=== PATIENT | female | born 1995 | race Caucasian/White ===

== ENCOUNTER 2016-02-26 11:20 | Outpatient (CLI) | payer OTHER ==
[~2016-02-26] VITALS: Ht 160 cm; Wt 54.1 kg
[~2016-02-26 11:20] MED LIST: PREN1TAB13 PO
[2016-02-26 11:39] VITALS: Ht 160 cm; Wt 54.1 kg
[2016-02-26 11:40] VITALS: BP 116/67; PULSE 63; RESP 18
[2016-02-26] MEDS ORDERED: TERBUTALINE 1 MG/ML INJ SC STA (12:16)
[2016-02-26] MEDS ORDERED: LACTATED RINGER'S 1,000 ML IV* STA (12:16)
[2016-02-26 12:57] LABS: ADD UMIC YES; URINE BILIRUBIN (Dip) NEGATIVE (NEGATIVE); URINE BLOOD (Dip) NEGATIVE (NEGATIVE); URINE COLOR LT. YELLOW (YELLOW); URINE GLUCOSE (Dip) NEGATIVE (NEGATIVE); URINE KETONES (Dip) NEGATIVE (NEGATIVE); URINE LEUKOCYTE ESTERASE (Dip) 2+ (NEGATIVE); URINE NITRITE (Dip) NEGATIVE (NEGATIVE); URINE TOTAL PROTEIN (Dip) NEGATIVE (NEGATIVE); URINE UROBILINOGEN (Dip) 0.2 E.U./dL (0.1-1.0)
[2016-02-26 13:11] LABS: BACTERIA,URINE FEW; SQUAMOUS EPITHELIAL CELL,UR FEW; URINE RBCS NONE SEEN /HPF (0)
[2016-02-26 13:19] LABS: BARBITURATES NEGATIVE (NEGATIVE); BENZODIAZEPINES NEGATIVE (NEGATIVE); CANNABINOIDS NEGATIVE (NEGATIVE); COCAINE NEGATIVE (NEGATIVE); OPIATES NEGATIVE (NEGATIVE)
--- NOTE | 2016-02-26 14:41 | RADRPT ---
PROCEDURE: OB ultrasound for biophysical profile CLINICAL INDICATION: labor. Biophysical profile. . TECHNIQUE: Multiple sonographic images of the pelvis were obtained. Transabdominal view of the gr avid uterus are available for review. The images were reviewed on a PACS workstation. COMPARISON: None FINDINGS: breathing movement = 2/2 tone = 2/2 motion = 2/2 GILBERT = 2/2 GILBERT = 14.9 cm Single intrauterine gestation is identified in cephalic position. Placenta is anterior without evide nce for abruption or previa. heart rate is 157 bpm. IMPRESSION: 1. Single live intrauterine gestation. 2. Biophysical profile = 8/8. 3. GILBERT = 14.9 cm. RPTAT: EE .Ezio Iraheta MD, MD Date Time Electronically viewed and signed by .Ezio Iraheta MD, MD on 02/26/2016 14:41 .R/
--- NOTE | 2016-02-26 14:43 | RADRPT ---
PROCEDURE: US OB. CLINICAL INDICATION: labor TECHNIQUE: Multiple sonographic images of the pelvis were obtained. Transabdominal imaging was pe rformed. Transvaginal images were obtained to assess cervical length. The images were reviewed on a PACS workstation. COMPARISON: No prior studies are available for comparison. FINDINGS: There is a single viable intrauterine gestation. Cardiac activity is present with 159 beats per min faith. There is a cephalic presentation. The cervix is closed and measures 3.1 cm in length Measurements were made in order to determine age. The results are as follows: BPD = 7.1 cm HC = 25.8 cm AC = 23.8 cm FL = 5.3 cm Gestational age is 28 weeks 1 day and ROMEO is 05/19/2016 by ultrasound criteria. EFW = 1178 g +/- 177 g (36 %). The placenta is anterior. There is no evidence for an abruption or placenta previa. IMPRESSION: 1. Single live intrauterine gestation of approximately 28 weeks 1 day by ultrasound criteria. 2. The cervix is closed and measures 3.1 cm in length. RPTAT: EE .Ezio Iraheta MD, Date Time Electronically viewed and signed by .Ezio Iraheta MD, MD on 02/26/2016 14:42 .R/
--- NOTE | 2016-02-26 17:14 | TRIAGE ---
OB Triage Datetime Report Generated by CPN: 02/26/2016 17:14 Datetime: 02/26/2016 15:21 Vaginal Exam Dilatation (cms): 0.0 Effacement (%): 50 Station: -2 Exam By: VALENTIN OROZCO Vaginal Bleeding: None Cervix, Consistency: Firm Cervix, Position: Posterior Presentation 'A': Unable to Assess Lie 'A': Unable to Assess Datetime: 02/26/2016 13:56 Vaginal Exam Dilatation (cms): 0.0 Effacement (%): 40 Station: -3 Exam By: DR SOTO Vaginal Bleeding: None Cervix, Consistency: Firm Cervix, Position: Posterior Presentation 'A': Unable to Assess Lie 'A': Unable to Assess Datetime: 02/26/2016 13:24 Labor Evaluation Frequency: 2-3 Monitor Mode: External Duration (sec)2399: 40-50 Quality: Mild Pattern: Normal: <= 5 Contractions in 10 Minutes Resting Tone Cameron: Relaxed Heart Rate FHR Baseline Rate: 150 Monitor Mode: External US FHR Baseline Changes: No Baseline Change Variability: Moderate 6-25 bpm Accelerations: 15X15 Decelerations: None Category: Category I Datetime: 02/26/2016 13:18 Bedside Blood Glucose: 79 Datetime: 02/26/2016 12:52 Labor Evaluation Frequency: 3-4 Monitor Mode: External Duration (sec)2399: 40-50 Quality: Mild Pattern: Normal: <= 5 Contractions in 10 Minutes Resting Tone Cameron: Relaxed Heart Rate FHR Baseline Rate: 150 Monitor Mode: External US FHR Baseline Changes: No Baseline Change Variability: Moderate 6-25 bpm Accelerations: 15X15 Decelerations: None Category: Category I Datetime: 02/26/2016 12:22 Labor Evaluation Frequency: 2-3 Monitor Mode: External Duration (sec)2399: 50-70 Quality: Mild Pattern: Normal: <= 5 Contractions in 10 Minutes Resting Tone Cameron: Relaxed Heart Rate FHR Baseline Rate: 150 Monitor Mode: External US FHR Baseline Changes: No Baseline Change Variability: Moderate 6-25 bpm Accelerations: 15X15 Decelerations: None Category: Category I Datetime: 02/26/2016 12:09 Stage of : OB Triage Labor Evaluation Frequency: 4-5 Monitor Mode: External Duration (sec)2399: 60-70 Quality: Mild Pattern: Normal: <= 5 Contractions in 10 Minutes Resting Tone Cameron: Relaxed Heart Rate FHR Baseline Rate: 150 Monitor Mode: External US FHR Baseline Changes: No Baseline Change Variability: Moderate 6-25 bpm Accelerations: 15X15 Decelerations: None Category: Category I Membrane Status: Intact Datetime: 02/26/2016 11:49 Stage of : OB Triage Maternal Assessment Level of Consciousness: Fully Conscious DTR's/Clonus: DTRs 2+; No Clonus Headache: Denies Blurred Vision: No Respiratory Effort: Unlabored Breath Sounds, Left: Clear and Equal Breath Sounds, Right: Clear and Equal Nausea/Vomiting: Denies RUQ Epigastric Pain: Denies Facial Edema: None Labor Evaluation Frequency: X3 Monitor Mode: External Duration (sec)2399: 50-60 Quality: Mild Pattern: Normal: <= 5 Contractions in 10 Minutes Resting Tone Cameron: Relaxed Heart Rate FHR Baseline Rate: 150 Monitor Mode: External US FHR Baseline Changes: No Baseline Change Variability: Moderate 6-25 bpm Accelerations: 15X15 Decelerations: None Category: Category I Pain Assessment Pain Scale: 5 Pain Presence: Intermittent Pain Type: Cramping Pain Location: Abdomen Pain Goal: 0 Pain Relief Measures: Comfort Measures Membrane Status: Intact Datetime: 02/26/2016 11:15 Time of Arrival: 02/26/2016 11:06 EGA: 28.1 Arrived By: Ambulatory Arrived From: Home Chief Complaint: R/O PTL Movement: Present Contractions: Denies/Absent Rupture of Membranes: Denies Vaginal Bleeding: None Vaginal Discharge: Denies Recent Sexual Intercouse: Denies Abdominal Trauma: Not Applicable Patient Complaints: Cramping Time Provider Notified: 02/26/2016 11:16 Provider Notified: JAYJAY Initial Plan: FFN, CERVICAL LENGTH, UA, CBC, URINE TOXIC SCREEN, EFW, BPP, IV HYDRATION, TERB X1. BPP 8/8 GILBERT 14.9 Datetime: 01/27/2016 21:35 Fall Risk Assessment Fall Score: 0 Fall Risk Score Definition: No Risk: No action required Datetime: 01/27/2016 21:28 EGA: 23.6 Datetime: 01/07/2016 13:03 Fall Risk Assessment Fall Score: 0 Fall Risk Score Definition: No Risk: No action required Datetime: 01/07/2016 13:02 EGA: 21.0
--- NOTE | 2016-02-26 17:46 | QN ---
Documentation Comment 20 years old with IUP at 28 weeks and 1 days, presented with complaint of uterine contractions. ROMEO: 05/19/2016. Denies any LOF, or decreased movement. Denies any dysuria, fever, chills or any other complaint. GA: A&O,NAD Abdomen: Soft, non tender, gravid Fundal height Correlate with GA. NST: contractions every 2 -3 minutes with irritability noted SSE: Small amount of pink vaginal discharge noted. TVCL: 3.5 cm Received a dose of terbutaline. Contractions stopped. UA : Negative. BPP: 09/29 GILBERT: 14.9 cm Symptoms completely resolved after terbutaline and IV hydration Assessment: IUP at 28 weeks and 1 day contractions Resolved with IV hydration and one dose of terbutaline Patient observed for couple of hours, Asymptomatic CL normal and not short DC home Strict labor precaution and kick counts discussed Advised about adequate Hydration Follow up with Ob clinic in 2-3 days recommended Advised to immediatey return to L&D if she has any recurrence of contractions. LOF, vaginal bleeding, decreased movement or for any other concerns REBECCA SOTO MD Feb 26, 2016 17:46
== END 2016-02-26 16:57 | disposition home or self-care (01) ==
LOC: OBT 11:20 → L-D 11:21 → OBT 16:57
PROVIDERS: ATTEND Obstetrics & Gynecology Obstetrics
DX: O62.9 Abnormality of forces of labor, unspecified (principal); O60.03 Preterm labor without delivery, third trimester; Z3A.28 28 weeks gestation of pregnancy
CPT/HCPCS: 36415; 76815; 76817; 76818; 80303; 81001; 82962; 96360; 96361; 96372; J3105; J7120; Z7500; 80307; 81003; G0463

== ENCOUNTER 2017-01-28 22:31 | Emergency (ER) | payer OTHER ==
[~2017-01-28] VITALS: Ht 160 cm; Wt 50.0 kg
[2017-01-28 22:35] VITALS: Ht 160 cm; Wt 50.0 kg
[2017-01-28] MEDS ORDERED: UDROBAC PO (23:18)
[2017-01-28] MEDS ORDERED: IBUP-1542 PO (23:18)
--- NOTE | 2017-01-28 23:23 | ERD ---
ER Documentation Chief Complaint Chief Complaint SORE THROAT/FEVER X 1 WEEK, CONGESTION & SOB, DENIES ASTHMA HPI The patient is a 21-year-old female, presenting to the ER because of sore throat , fever, nasal congestion, intermittent cough for the last 3 days. She denies facial pain, neck pain, chest pain, dyspnea, abdominal pain, vomiting, dysuria, diarrhea. She does not smoke nor drink Medical/surgical history: None ROS All systems reviewed and are negative except as per history of present illness. Medications Home Meds Active Scripts Ibuprofen* (Motrin*) 600 Mg Tab, 600 MG PO Q6, #30 TAB Prov:FANY PAULA MD 01/28/17 Guaifenesin-Codeine Phosphate* (Robitussin* AC) 5 Ml Syrup, 10 ML PO Q6H Y for COUGH, #120 ML Prov:FANY PAULA MD 01/28/17 Reported Medications Vit-Iron Fumarate-FA ( Vitamins Tablet) 1 Tab Tablet, 1 TAB PO DAILY, TAB 09/27/15 Allergies Allergies: Coded Allergies: No Known Allergy (Unverified , 02/26/16) PMhx/Soc Medical and Surgical Hx: pt denies Medical Hx, pt denies Surgical Hx History of Surgery: No Anesthesia Reaction: No Hx Neurological Disorder: No Hx Respiratory Disorders: No Hx Cardiac Disorders: No Hx Psychiatric Problems: No Hx Miscellaneous Medical Probl: Yes (GALLSTONES) Hx Alcohol Use: No Hx Substance Use: No (MARIJUANA quit x2015) Hx Tobacco Use: Yes (QUIT 05/2015) Smoking Status: Former smoker Physical Exam Vitals Vital Signs Date Time Temp Pulse Resp B/P Pulse Ox O2 Delivery O2 Flow Rate FiO2 01/28/17 22:35 96.6 82 20 121/69 99 Physical Exam Const: No acute distress. Head: Atraumatic. Eyes: Normal Conjunctiva. ENT: Normal External Ears, Nose and Mouth. BL Tympanic membranes and oropharynx are within normal limit Neck: Full range of motion. No meningismus. Resp: Clear to auscultation bilaterally. Cardio: Regular rate and rhythm. Abd: Soft, non distended, normal bowel sounds, non tender. Skin: No petechiae or rashes. Back: No midline or flank tenderness. Ext: No cyanosis, or edema. Neur: Awake and alert. No focal deficit Psych: Normal Mood and Affect. Procedures/MDM MEDICAL MAKING DECISION: The patient is a 31-year-old female, presenting with acute viral syndrome, stable for outpatient follow-up The differential diagnoses considered include but are not limited to otitis media, tonsillitis, pneumonia, cystitis, influenza Departure Diagnosis: Primary Impression: Viral syndrome Condition: Good Patient Instructions: Viral Syndrome (Adult) Additional Instructions: She was discharged with Divina COY and Vielka Call your primary care doctor TOMORROW for an appointment during the next 2-3 days.See the doctor sooner or return here if your condition worsens before your appointment time. FANY PAULA MD Jan 28, 2017 23:23
== END 2017-01-28 23:25 | disposition home or self-care (01) ==
LOC: FTE 22:31
DX: B34.9 Viral infection, unspecified (principal); Z87.891 Personal history of nicotine dependence
CPT/HCPCS: 99283

== ENCOUNTER 2017-03-11 19:16 | Emergency (ER) | END 2017-03-12 02:29 | disposition home or self-care (01) ==

== ENCOUNTER 2017-04-14 11:15 | Emergency (ER) | END 2017-04-14 13:26 | disposition home or self-care (01) ==

== ENCOUNTER 2017-09-06 18:51 | Emergency (ER) | END 2017-09-06 19:56 | disposition home or self-care (01) ==

== ENCOUNTER 2017-10-24 07:36 | Emergency (ER) | END 2017-10-24 09:48 | disposition home or self-care (01) ==

== ENCOUNTER 2017-12-20 20:24 | Inpatient (IN) | END 2017-12-23 12:37 | disposition home or self-care (01) | DRG 418 ==

== ENCOUNTER 2017-12-31 21:37 | Emergency (ER) | END 2018-01-01 01:28 | disposition home or self-care (01) ==

== ENCOUNTER 2018-05-30 10:17 | Emergency (ER) | payer MEDICAID, OTHER ==
[~2018-05-30] VITALS: Ht 162.6 cm; Wt 47.4 kg
[~2018-05-30 10:17] MED LIST changes: +CIPR500T4 PO; +HYDR-4011 PO
[2018-05-30 10:22] VITALS: BP 123/66; PULSE 84; RESP 18; Ht 162.6 cm; Wt 47.4 kg
[2018-05-30] MEDS ORDERED: ELIM TOP (11:07)
[2018-05-30] MEDS ORDERED: HYDR-3029 PO (11:23)
--- NOTE | 2018-05-30 11:28 | ERD ---
ER Documentation Chief Complaint Chief Complaint generalize body rash x3 weeks HPI 22-year-old female presenting with generalized rash times 3 weeks. Patient has been told she has scabies however symptoms are not improving. She was using her permethrin incorrectly and she states that her daughter and her boyfriend have now contracted the same itch with rash. Denies any fevers. Denies other medical problems. NKDA. Surgical history denies. Social history denies ROS All systems reviewed and are negative except as per history of present illness. Medications Home Meds Active Scripts Hydroxyzine Hcl* (Hydroxyzine Hcl*) 10 Mg Tablet, 10 MG PO Q6H PRN for ITCHING, #30 TAB Prov:MATILDE AYOUB PA-C 05/30/18 Permethrin* (Elimite*) 5% Cr, 1 APPLIC TOP ONCE, #2 TUB Prov:MATILDE AYOUB PA-C 05/30/18 Hydrocodone/Acetaminophen (Ponderosa 5-325 Tablet) 1 Each Tablet, 1 EACH PO Q6 for PAIN, #15 TAB Prov:[facility] 12/23/17 Ciprofloxacin Hcl* (Ciprofloxacin Hcl*) 500 Mg Tablet, 500 MG PO BID, #14 TAB Prov:OLIVERMEME [facility]es [facility] 12/23/17 Reported Medications Vit-Iron Fumarate-FA ( Vitamins Tablet) 1 Tab Tablet, 1 TAB PO DAILY, TAB 09/27/15 Allergies Allergies: Coded Allergies: No Known Allergy (Unverified , 03/11/17) PMhx/Soc History of Surgery: Yes (CHOLECYSTECTOMY 1 WK AGO) Anesthesia Reaction: No Hx Neurological Disorder: No Hx Respiratory Disorders: No Hx Cardiac Disorders: No Hx Psychiatric Problems: No Hx Miscellaneous Medical Probl: No Hx Alcohol Use: No Hx Substance Use: Yes (SMOKES WEED) Hx Tobacco Use: Yes Smoking Status: Never smoker FmHx Family History: No diabetes, No coronary disease, No other Physical Exam Vitals Vital Signs Date Temp Pulse Resp B/P (MAP) Pulse Ox O2 O2 Flow FiO2 Time Delivery Rate 05/30/18 98.8 84 18 123/66 98 10:22 (85) Physical Exam GENERAL: The patient is well-appearing, well-nourished, in no acute distress CHEST: Clear to auscultation bilaterally. There are no rales, wheezes or rhonchi. HEART: Regular rate and rhythm. No murmurs, clicks, rubs or gallops. NEUROLOGIC: Alert and oriented. Cranial nerves II through XII intact. Motor strength in all 4 extremities with 5 out of 5 strength. Sensation grossly intact. Normal speech and gait. SKIN: Pinpoint excoriated rash noted to hands arms and skin folds. No vesicles or pustules. Procedures/MDM MDM: 22-year-old female presenting with findings consistent with scabies. I have low suspicion for life-threatening rash. I have low suspicion for bacterial or viral rash. Patient is discharged with supportive medications and told to follow-up with primary care within 1-2 days for close evaluation. She is told symptoms change or worsen to return immediately to the ER. All questions answered at discharge Departure Diagnosis: Primary Impression: Scabies Condition: Stable Patient Instructions: Scabies Additional Instructions: FOLLOW UP WITH YOUR PRIMARY CARE PHYSICIAN TOMORROW.Return to this facility if you are not improving as expected. MATILDE AYOUB PA-C May 30, 2018 11:28
== END 2018-05-30 11:15 | disposition home or self-care (01) ==
LOC: FTE 10:17
DX: B86 Scabies (principal); Z87.891 Personal history of nicotine dependence
CPT/HCPCS: 99282